=== PATIENT | female | born 1995 | race African-American/Black ===

== ENCOUNTER 2018-04-12 16:03 | Emergency (ER) | payer MEDICAID ==
[~2018-04-12] VITALS: Ht 165.1 cm; Wt 52.0 kg
[2018-04-12] MEDS ORDERED: HYDROCODONE/ACETAMINOPHEN 5/325MG TABLET PO ONE (18:00)
[2018-04-12 18:08] VITALS: BP 112/60
== END 2018-04-12 18:10 | disposition home or self-care (01) ==
LOC: EDSEX 17:01 → ER 17:01
DX: K08.89 Other specified disorders of teeth and supporting structures (principal)
CPT/HCPCS: 99283

== ENCOUNTER 2019-01-05 00:12 | Emergency (ER) | payer SELFPAY ==
[~2019-01-05] VITALS: Ht 165.1 cm; Wt 59.0 kg
[2019-01-05] MEDS ORDERED: KETOROLAC 30MG/ML VIAL IM ONE (01:45)
[2019-01-05 02:16] LABS: CLARITY URINE CLEAR (CLEAR); COLOR URINE YELLOW (YELLOW); KETONES URINE NEGATIVE (NEGATIVE); LEUKOCYTE ESTERASE URINE NEGATIVE (NEGATIVE); NITRITE URINE NEGATIVE (NEGATIVE); OCCULT BLOOD URINE NEGATIVE (NEGATIVE); PH URINE 6.5 (4.5-8.0); PROTEIN URINE NEGATIVE (NEGATIVE); SPECIFIC GRAVITY URINE 1.023 (1.005-1.030)
[2019-01-05 02:22] LABS: UCG SCREEN NEGATIVE
[2019-01-05 03:39] VITALS: BP 105/67
== END 2019-01-05 03:39 | disposition home or self-care (01) ==
LOC: ER 00:12
DX: S39.92XA Unspecified injury of lower back, initial encounter (principal); M54.5 Low back pain; W18.39XA Other fall on same level, initial encounter; Y93.89 Activity, other specified; Y92.89 Other specified places as the place of occurrence of the external cause; Y99.8 Other external cause status
CPT/HCPCS: 72070; 81003; 81025; 96372; 99284; J1885